=== PATIENT | female | born 1985 | race Caucasian/White ===

== ENCOUNTER 2021-02-27 17:03 | Emergency (ER) | payer OTHER, SELFPAY ==
[2021-02-27 17:06] VITALS: PULSE 100; RESP 18; TEMP 36.7; O2SAT 98; BMI 29.2
--- NOTE | 2021-02-27 17:42 | ED.ANIMALBIT ---
HPI - Animal Bite General Chief Complaint: Animal Bite Stated Complaint: Dog Bite on Face Time Seen by Provider: 02/27/21 17:31 History of Present Illness HPI narrative: Patient complains of dog bite to the right side of the face from her friend's dog that she was playing with, she is not sure if the dog is up-to-date on tetanus shot but it is a known dog that is easy to follow, she needs a tetanus shot, no other injury Related Data Previous Rx's Medication Instructions Recorded amoxicillin-pot clavulanate 1 tab PO Q12H 4 Days #8 tab 02/27/21 [Augmentin] Allergies Allergy/AdvReac Type Severity Reaction Status Date / Time No Known Allergies Allergy Verified 02/27/21 17:36 Review of Systems Review of Systems: Positive for dog bites to the face, negatives are no fever no chills no numbness no weakness no tingling no difficulty breathing or swallowing no rash no dizziness Yes all other systems are reviewed and are negative PMFSH Past Medical History Source: nursing notes reviewed Medical History (Updated 02/28/21 @ 00:00 by Jaquan Russell) Patient denies significant medical history Social History Social History Advance Directives: No Advance Directives Information Provided: Yes Physical Exam Vital Signs: Vital Signs: Last Vital Signs Temp 98.0 F 02/27/21 17:06 Pulse 100 02/27/21 17:06 Resp 18 02/27/21 17:06 Pulse Ox 98 02/27/21 17:06 Body Mass Index 29.2 General appearance no acute distress, cooperative and O x3 The face head several small 0.5 cm dog bite wounds, no significant gaping laceration, no bony tenderness The neck was supple The pharynx was clear, no injury to the lips Respiratory no distress Extremities full range of motion x4 Neuro no focal deficit Course Course Course Narrative: Patient was given prophylactic antibiotics, tetanus shot, the bite brock on the face were irrigated and cleansed with normal saline but none of them needed repair now Patient is advised if the dog get sick or dyes within 10 days if she cannot confirm that the dog was vaccinated that she should return for discussion of rabies vaccination Discharge Plan Discharge Clinical Impression: Dog bite Patient Disposition: Home, Self-Care Instructions: Animal Bite (ED), Rabies (ED) Additional Instructions: The small bite on her face was not repaired as there is slight risk of infection with suturing We gave you tetanus shot We started preventive antibiotic Augmentin to prevent infection If dog is not up to date on rabies shots it needs to be observed to see if the dog get sick or dies with in the next 10 days If the dog get sicker dyes within 10 days and is not immunized for rabies you should return to the ER for rabies immunization Return to the ER any time for any signs of infection such as redness swelling discharge from wound, any sign of infection or any worse condition or concerns Prescriptions: New amoxicillin-pot clavulanate [Augmentin] 875-125 mg tablet 1 tab PO Q12H 4 Days Qty: 8 RF: 0 Interventions: ED Discharge Assessment Last Done: 02/27/21 18:20 Discharge Date/Time: 02/27/21 18:20
[2021-02-27] MEDS: Diphth,Pertus(ACell),Tet Adult 0.5 ML SYRINGE IM (18:10)
[2021-02-27] MEDS: Amoxicillin/Potassium Clav 875 MG TABLET PO (18:10)
== END 2021-02-27 18:20 | disposition home or self-care (01) ==
PROVIDERS: Emergency Provider Emergency Medicine; PCP Internal Medicine
DX: S00.87XA Other superficial bite of other part of head, initial encounter (principal); R51.9 Headache, unspecified; W54.0XXA Bitten by dog, initial encounter; Y93.9 Activity, unspecified; Y92.009 Unspecified place in unspecified non-institutional (private) residence as the place of occurrence of the external cause; Y99.9 Unspecified external cause status; Z79.899 Other long term (current) drug therapy
CPT/HCPCS: 90471; 90715; 99283; 99284

== ENCOUNTER 2021-03-19 12:44 | Emergency (ER) | payer OTHER, SELFPAY | END 2021-03-19 13:02 | disposition left against medical advice (07) | PROVIDERS: Emergency Provider Emergency Medicine; PCP Internal Medicine | DX: R55 Syncope and collapse (principal) ==

== ENCOUNTER 2021-04-06 13:22 | Outpatient (REF) | payer OTHER, SELFPAY ==
[2021-04-06 13:59] LABS: COVID-19 Test Negative (Negative); IDNOW Serial# 55D5AD1C
== END 2021-04-06 13:23 | disposition home or self-care (01) ==
LOC: HO.LAB 13:22
PROVIDERS: Visit Provider Internal Medicine
DX: Z20.822 Contact with and (suspected) exposure to COVID-19 (principal)
CPT/HCPCS: 36415; 87635; C9803

== ENCOUNTER 2021-04-06 14:56 | Emergency (ER) | payer OTHER, SELFPAY ==
--- NOTE | ~2021-04-06 | XR_ITS ---
EXAMINATION: XR CHEST CLINICAL INFORMATION: Cough. COMPARISON: None TECHNIQUE: Frontal view of the chest was obtained. FINDINGS: No significant abnormality is noted involving the heart, lungs, mediastinum, bony thorax or soft tissues. XR/XR chest 1V IMPRESSION: Unremarkable chest examination.
[2021-04-06 15:47] VITALS: BP 154/79; PULSE 69; RESP 18; TEMP 36.6; O2SAT 99; BMI 30.2
[2021-04-06 16:55] LABS: Influenza A PCR NEGATIVE (Negative); Influenza B PCR NEGATIVE (Negative); Resp Syncy Virus RNA Qual PCR NEGATIVE (Negative); SARS COV2 PCR INHOUSE NEGATIVE (Negative)
--- NOTE | 2021-04-06 17:25 | ED.SOB ---
HPI - SOB/Dyspnea General Source: patient, RN notes reviewed and old records reviewed Mode of arrival: ambulatory Limitations: no limitations History of Present Illness HPI Narrative: 36-year-old female here today for complaining of cough, and some SOB. Patient reports that she has been coughing quite a bit and has been making her gag and feeling nauseous. Denies any CP, SOB with or without exertion. Reports of subjective fevers. Negative for vomiting or diarrhea. Negative for abdominal discomfort. Denies any exposure to COVID. Related Data Previous Rx's Medication Instructions Recorded amoxicillin-pot clavulanate 1 tab PO Q12H 4 Days #8 tab 02/27/21 [Augmentin] albuterol sulfate 2 puff INHALATION Q6H PRN #8.5 g 04/06/21 azithromycin 250 mg PO DAILY 5 Days #5 tab 04/06/21 benzonatate [Tessalon Perles] 100 mg PO BID PRN #20 cap 04/06/21 Allergies Allergy/AdvReac Type Severity Reaction Status Date / Time No Known Allergies Allergy Verified 02/27/21 17:36 Review of Systems Constitutional: Constitutional: Denies weight gain and Denies weight loss Cardiovascular: Cardiovascular: Reports no additional cardiovascular complaints Respiratory: Respiratory: Reports no additional respiratory complaints, Reports chest congestion, Reports cough and Reports dyspnea (When coughing) Gastrointestinal: Gastrointestinal: Denies abdominal pain, Denies belching, Denies melena, Denies bloating, Denies change in bowel habits, Denies dyspepsia, Denies heartburn, Denies nausea and Denies vomiting Neurologic: Reports system reviewed and no additional complaints, except as documented Psychiatric: Psychiatric: Reports no additional psychiatric complaints PMFSH Past Medical History Medical History (Updated 04/07/21 @ 00:01 by Background Daemon) Patient denies significant medical history Social History Social History Advance Directives: No Advance Directives Information Provided: Yes Patient : No Physical Exam Vital Signs: Vital Signs: Last Vital Signs Temp 97.9 F 04/06/21 15:47 Pulse 86 04/06/21 17:59 Resp 18 04/06/21 15:47 BP 154/79 H 04/06/21 15:47 Pulse Ox 99 04/06/21 15:47 Body Mass Index 30.2 Const: General: healthy appearing, no acute distress and well developed Nutritional Appearance: well nourished Orientation/consciousness: patient oriented x3 Neck: Neck: Yes normal visual inspection, Yes full ROM and Yes trachea midline Thyroid: Thyroid normal Chest: Chest palpation & inspection: normal inspection of the chest Resp: Effort & Inspection: Actively coughing and not labored Auscultation: wheezes (Right upper inspiratory and expiratory.) Cardio: Rate: regular rate Rhythm: regular rhythm GI: Inspection: Yes normal to inspection and No distended Palpation (GI): No hepatosplenomegaly present Auscultation: normal bowel sounds Skin: General skin exam: elasticity normal, turgor normal and dry skin Neuro: General: patient oriented x3 Course Course Course Narrative: 36-year-old female here today for complaining of cough, SOB fevers in the last few days. Denies any exposure to COVID. Lung sounds expiratory wheeze in the right upper lobe. Negative for history of asthma. Denies any GI symptoms. Will give her up draft, Tessalon Perles and wait for improvement. Reevaluation(s) Reevaluation #1: Patient reports to be feeling better. Cough suppressed by Tessalon Perles. Chest X-ray negative for any acute processes. Lung sounds clear. Will send patient home with scripts for cough suppressant, albuterol rescue inhaler. MDM - SOB/Dyspnea Medical Records Attestation: I reviewed the patient's medical records. Lab Data Labs: Lab Results 04/06/21 Range/Units 16:08 Coronavirus (PCR) NEGATIVE (Negative) Influenza Type A (PCR) NEGATIVE (Negative) Influenza Type B (PCR) NEGATIVE (Negative) RSV RNA Qual (PCR) NEGATIVE (Negative) Imaging Data Chest x-ray: Radiologist's impression: FINDINGS: No significant abnormality is noted involving the heart, lungs, mediastinum, bony thorax or soft tissues. XR/XR chest 1V IMPRESSION: Unremarkable chest examination. Discharge Plan Discharge Clinical Impression: Viral respiratory illness, Cough, Wheezing Patient Disposition: Home, Self-Care Instructions: Viral Syndrome (ED), Wheezing (ED) Additional Instructions: You were seen here today for upper respiratory symptoms. Your test were negative for COVID and flu. You were given an albuterol treatment that improved your breathing. You are giving cough suppressant to help with your cough. You will be sent home with script for albuterol rescue inhaler as well as cough suppressant. Your chest x-ray was also negative. Please follow-up with your primary care physician in 2-3 days. He may return to the emergency department if your symptoms will get worse or if he will experience any other concerning symptoms. Prescriptions: New benzonatate [Tessalon Perles] 100 mg capsule 100 mg PO BID PRN (Reason: cough) Qty: 20 RF: 0 albuterol sulfate 90 mcg/actuation HFA aerosol inhaler 2 puff inhalation Q6H PRN (Reason: shortness of breath or wheezing) Qty: 8.5 RF: 0 azithromycin 250 mg tablet 250 mg PO DAILY 5 Days Qty: 5 RF: 0 No Action amoxicillin-pot clavulanate [Augmentin] 875-125 mg tablet 1 tab PO Q12H 4 Days Qty: 8 RF: 0 Stand Alone Forms: Work/School Release Interventions: ED Discharge Assessment Last Done: 04/06/21 19:15 Discharge Date/Time: 04/06/21 19:17
[2021-04-06 17:59] VITALS: PULSE 86; O2SAT 98
[2021-04-06] MEDS: Albuterol Sulfate (0.083%) 2.5 MG/3 ML VIAL.NEB INHALE (17:59)
[2021-04-06] MEDS: Benzonatate 100 MG CAPSULE PO (18:12)
== END 2021-04-06 19:17 | disposition home or self-care (01) ==
PROVIDERS: Nurse Practitioner Family; Emergency Provider Internal Medicine; PCP Internal Medicine
DX: B34.9 Viral infection, unspecified (principal); R05 Cough; R50.9 Fever, unspecified; Z20.822 Contact with and (suspected) exposure to COVID-19
CPT/HCPCS: 0241U; 36415; 71045; 94640; 99283

== ENCOUNTER 2021-06-22 00:26 | Emergency (ER) | payer OTHER, SELFPAY ==
[2021-06-22 00:37] VITALS: BP 131/95; PULSE 94; RESP 14; TEMP 36.6; O2SAT 100; BMI 28.3
== END 2021-06-22 01:35 | disposition left against medical advice (07) ==
PROVIDERS: Emergency Provider Emergency Medicine
DX: S61.411A Laceration without foreign body of right hand, initial encounter (principal); W25.XXXA Contact with sharp glass, initial encounter; Y93.9 Activity, unspecified; Y92.039 Unspecified place in apartment as the place of occurrence of the external cause; Y99.9 Unspecified external cause status
CPT/HCPCS: 99281; 99282

== ENCOUNTER 2021-09-14 14:50 | Emergency (ER) | payer OTHER, SELFPAY ==
[2021-09-14 15:57] VITALS: BP 122/61; PULSE 94; RESP 20; TEMP 36.8; O2SAT 98; BMI 29.2
[2021-09-14 16:04] LABS: COVID-19 Test Negative (Negative)
--- NOTE | 2021-09-14 17:11 | ED_ITS ---
HPI - URI/Sore Throat General Chief Complaint: Upper Respiratory Symptoms Stated Complaint: FLU [place]MP[place]S Time Seen by Provider: 09/14/21 16:43 Source: patient Mode of arrival: ambulatory Limitations: no limitations History of Present Illness HPI Narrative: 36-year-old female presenting to the ED with multiple complaints which include chills, fatigue, body aches, generalized weakness, generalized rash, sore throat, loss of taste and smell, productive cough with white-colored sputum for the past 2 days worse today. Reports she is not vaccinated to COVID. Denies any recent travel or sick contacts. She also reports her bilateral breasts have been hurting over the past few days as well and she has not gotten her menstrual period and she is concerned. Denies any measured fevers, dizziness, headaches, neck pain/stiffness, chest pain or shortness of breath, dyspnea on exertion, orthopnea, nausea/vomiting/diarrhea or constipation, abdominal pain, back pain, dysuria, hematuria, abnormal vaginal discharge, va ginal bleeding or any other symptoms complaints or concerns at this time. MD elicited complaint: cough, sore throat, rhinorrhea and nasal congestion Onset (ago): day(s) (Two days worse today) Consistency: constant and progressively worsening Severity: moderate Description of mucous: clear, watery and other (White) Able to tolerate fluids by mouth: Yes Exacerbating factors: swallowing Relieving factors: nothing Associated symptoms: chills, myalgias, rhinorrhea, nasal congestion, sore throat, cough and rash Treatments prior to arrival: none Related Data Previous Rx's Medication Instructions Recorded amoxicillin 875 mg-potassium 1 tab PO Q12H 4 Days #8 tab 02/27/21 clavulanate 125 mg tablet (Augmentin) albuterol sulfate 90 mcg/actuation 2 puff INHALATION Q6H PRN #8.5 g 04/06/21 aerosol inhaler azithromycin 250 mg tablet 250 mg PO DAILY 5 Days #5 tab 04/06/21 benzonatate 100 mg capsule 100 mg PO BID PRN #20 cap 04/06/21 (Tessalon Perles) cephalexin 500 mg capsule 500 mg PO Q6H 7 Days #28 cap 09/14/21 Allergies Allergy/AdvReac Type Severity Reaction Status Date / Time No Known Allergies Allergy Verified 09/14/21 15:57 Review of Systems Review of Systems: Constitutional : No Weight loss, No Fever, + Chills, No Night Sweats, + Fatigue, + Malaise ENT/Mouth : No Hearing loss, No Ear Pain, + Nasal Congestion, No Sinus Pain, No Hoarseness, + sore throat, + Rhinorrhea, No Swallowing Difficulty Eyes: No Eye Pain, No Swelling, No Redness, No Foreign Body, No Discharge, No Vision Changes Cardiovascular : No Chest Pain, No SOB, No Dyspnea on Exertion, No Orthopnea, No Edema, No Palpitations Respiratory : + Cough, + Sputum, No Wheezing, No Smoke Exposure, No Dyspnea Gastrointestinal : No Nausea, No Vomiting, No Diarrhea, No Constipation, No abdominal Pain, No Hematochezia, No Melena Genitourinary : no irregular bleeding, No Dysuria, No Urinary Frequency, No Hematuria, No Urinary Incontinence, No Urgency, No Flank Pain, No Urinary Flow Changes, No Hesitancy Musculoskeletal : No joint pain, + Myalgias, No Joint Swelling Skin : No Skin Lesions, No rash Neuro : No Weakness, No Numbness, No Paresthesias, No Loss of Consciousness, No Dizziness, No Headache Psych : No Anxiety/Panic, No Depression, No SI/HI/AH/VH, No Social Issues, Heme/Lymph: No Bruising, No Bleeding,No Lymphadenopathy Endocrine : No Polyuria, No Polydipsia, No Temperature Intolerance Yes all other systems are reviewed and are negative [facility] Past Medical History Attestation statement: The following information was validated with the patient. Medical History Patient denies significant medical history Social History Social History Advance Directives: No Advance Directives Information Provided: No Patient : No Physical Exam Vital Signs: Vital Signs: Last Vital Signs Temp 98.3 F 09/14/21 15:57 Pulse 94 09/14/21 15:57 Resp 20 09/14/21 15:57 BP 122/61 09/14/21 15:57 Pulse Ox 98 09/14/21 15:57 Body Mass Index 29.2 vital signs have been reviewed as normal and appeared to be correct. Blood pressure normal. Heart rate normal. Respiration rate normal. Temperature normal. Oxygen saturation normal. Appearance: Alert. Oriented X3. No acute distress. Head: Normal external exam. Normocephalic. Atraumatic. Eyes: PERRLA. EOMI. Conjunctiva and sclera normal. Eyelids normal. ENT: EAC normal. TM's Normal. Pharynx normal. Uvula midline. Moist mucous membranes. No trismus noted. No drooling noted. No muffled voice noted. Neck: Normal inspection. Neck supple. FROM. No adenopathy. Thyroid Normal. No meningeal signs. No neck mass noted. CVS: Normal heart rate and rhythm. Heart sound normal. Pulses normal throughout. No murmurs/rales/gallops. Respiratory: No respiratory distress. Painless inspiration. Breath sounds normal. No wheezes/rales/rhonchi noted. Chest nontender. No accessory muscle usage noted or decreased air movement noted. Breast Exam: Patient reports tenderness to bilateral breast although no lump/lesions/rashes/induration noted to bilateral breasts. No lymphadenopathy is noted. No nipple discharge is noted. Breasts have normal contour/shape. Abdomen: Soft and nontender. Bowel sounds normal in all 4 quadrants. No distention noted. No organomegaly noted. No visible injury noted. Back:Full range of motion noted. No rashes/lesion/induration/fluctuance or signs of infection noted. Skin: Skin warm and dry. Normal skin color. Normal skin turgor. No rashes/lesions/lacerations noted. Extremities: Extremities exhibit normal range of motion. Extremities nontender. Neuro: Oriented X 3. No motor deficit. No sensory deficit. Reflexes normal. Normal steady gait. No focal neuro deficits noted. Vascular: + radial pulses/+ 2 distal pedal pulses/+2 dorsalis pedis b/l. Normal cap refill. No cyanosis noted to upper extremity nails and lower extremity toes nails. Course Course Course Narrative: 17pm - 36-year-old female presenting to the ED with multiple complaints which include chills, fatigue, body aches, generalized weakness, generalized rash, sore throat, loss of taste and smell, productive cough with white-colored sputum for the past 2 days worse today. Reports she is not vaccinated to COVID. Denies any recent travel or sick contacts. She also reports her bilateral breasts have been hurting over the past few days as well and she has not gotten her menstrual period and she is concerned. Denies any measured fevers, dizziness, headaches, neck pain/stiffness, chest pain or shortness of breath, dyspnea on exertion, orthopnea, nausea/vomiting/diarrhea or constipation, abdominal pain, back pain, dysuria, hematuria, abnormal vaginal discharge, vaginal bleeding or any other symptoms complaints or concerns at this time. Plan: CXR, UA, UHCG, SARS/RSV/FLU swab and strep then re-evaluate Reevaluation(s) Reevaluation #1: - patient's UA reveals +1 leukocytes and 10-14 white blood cells therefore she has a UTI and should be treated. - patient also positive for - therefore I discussed this with the patient and we canceled the chest x-ray due to I do not believe she has pneumonia and I explained to her that she is currently she reports that she took out her IUD a few months ago she believes in April and she has not had a period since then she has been sexually active. She denies any abdominal pain, abnormal vaginal discharge or vaginal bleeding therefore at this time will obtain labs including a serum quant and re- evaluate sign-out to LISA Suresh. Time: 18:53 [facility] - URI/Sore Throat Medical Records Attestation: I reviewed the patient's medical records. Lab Data Attestation: I reviewed the patient's lab results. Labs: Lab Results 09/14/21 09/14/21 09/14/21 Range/Units 15:35 17:23 17:23 Urine Color Urine Appearance Urine pH (5.0-8.0) Ur Specific [place] (1.005-1.025) Urine Protein (NEG-TRACE) MG/DL Urine Glucose (UA) (NEG) MG/DL Urine Ketones (NEG) MG/DL Urine Blood (NEG) Urine Nitrite (NEG) Ur Leukocyte Esterase (NEG) Urine RBC (0) /HPF Urine WBC (0-4) /HPF Ur Squamous Epith Cells /LPF Urine Bacteria /LPF Urine Test (NEGATIVE) Coronavirus (PCR) NEGATIVE (Negative) COVID-19 ([facility]) Negative (Negative) COVID-19 Clin Com See Note Influenza Type A (PCR) NEGATIVE (Negative) Influenza Type B (PCR) NEGATIVE (Negative) RSV RNA Qual (PCR) NEGATIVE (Negative) S. pyogenes GrpA DAVID Negative (Negative) 09/14/21 09/14/21 Range/Units 17:23 17:23 Urine Color YELLOW Urine Appearance HAZY Urine pH 7.5 (5.0-8.0) Ur Specific [place] 1.010 (1.005-1.025) Urine Protein NEG (NEG-TRACE) MG/DL Urine Glucose (UA) NEG (NEG) MG/DL Urine Ketones NEG (NEG) MG/DL Urine Blood NEG (NEG) Urine Nitrite NEG (NEG) Ur Leukocyte Esterase 1+ H (NEG) Urine RBC 0-2 (0) /HPF Urine WBC 10-14 H (0-4) /HPF Ur Squamous Epith Cells 2+ /LPF Urine Bacteria TRACE /LPF Urine Test POSITIVE H (NEGATIVE) Coronavirus (PCR) (Negative) COVID-19 ([facility]) (Negative) COVID-19 Clin Com Influenza Type A (PCR) (Negative) Influenza Type B (PCR) (Negative) RSV RNA Qual (PCR) (Negative) S. pyogenes GrpA DAVID (Negative) Imaging Data Chest x-ray: Attestation: I personally reviewed and interpreted this imaging study as follows: Discharge Plan Discharge Clinical Impression: UTI (urinary tract infection), Instructions: (ED), Urinary Tract Infection in (ED) Prescriptions: New cephalexin 500 mg capsule 500 mg PO Q6H 7 Days Qty: 28 RF: 0 No Action amoxicillin-pot clavulanate [Augmentin] 875-125 mg tablet 1 tab PO Q12H 4 Days Qty: 8 RF: 0 benzonatate [Tessalon Perles] 100 mg capsule 100 mg PO BID PRN (Reason: cough) Qty: 20 RF: 0 albuterol sulfate 90 mcg/actuation HFA aerosol inhaler 2 puff inhalation Q6H PRN (Reason: shortness of breath or wheezing) Qty: 8.5 RF: 0 azithromycin 250 mg tablet 250 mg PO DAILY 5 Days Qty: 5 RF: 0 Referrals: Isabel Chilel DO [Primary Care Provider] - 2 days Chad Tamayo MD [Physician] - 2 days Print Language: Nigerian
[2021-09-14 17:52] LABS: Appearance Urine HAZY; Color Urine YELLOW; Glucose Urine UA NEG (NEG); Leukocyte Esterase Urine 1+ (NEG); Nitrite Urine NEG (NEG); PH 7.5 (5.0-8.0); UACC Culture Trigger YES; Urine Blood NEG (NEG); Urine Ketones NEG (NEG); Urine Protein NEG (NEG-TRACE)
[2021-09-14 17:53] LABS: UPreg QC Valid YES; Urine Pregnancy POSITIVE (NEGATIVE)
[2021-09-14 18:00] LABS: IDNOW Serial# 08D9AD1C; Strep A Nucleic Acid Negative (Negative)
[2021-09-14 18:27] LABS: Bacteria Urine TRACE /LPF; RBC Urine 0-2 /HPF (0); Squamous Epithelial Cell Urine 2+ /LPF
[2021-09-14 18:37] LABS: Influenza A PCR NEGATIVE (Negative); Influenza B PCR NEGATIVE (Negative); Resp Syncy Virus RNA Qual PCR NEGATIVE (Negative); SARS COV2 PCR INHOUSE NEGATIVE (Negative)
[2021-09-14 18:59] LABS: MANUAL DIFF FLAG NO
[2021-09-14 19:01] LABS: Basophils Percent Auto 0.2 % (0-2); Eosinophils Absolute Auto 0.1 X10*3/uL (0.0-0.4); Eosinophils Percent Auto 1.5 % (0-4); Hematocrit 34.2 % (37-47); Hemoglobin 12.2 g/dl (12.0-16.0); Imm Gran Abs Auto 0.02 X10*3/uL (0.00-0.03); Imm Gran Pct Auto 0.3 % (0.0-0.4); Lymphocytes Absolute Auto 1.3 X10*3/uL (1.2-4.9); Mean Corpuscular HGB Conc 35.7 g/dl (31.0-35.0); Mean Corpuscular Hemoglobin 34.1 pg (27.0-33.0); Mean Corpuscular Volume 95.5 fL (80-98); Mean Platelet Volume 10.3 fL (9.4-12.3); Monocytes Absolute Auto 0.5 X10*3/uL (0.1-1.2); Monocytes Percent Auto 7.6 % (2-11); Neutrophils Absolute Auto 4.6 X10*3/uL (2.0-8.3); Neutrophils Percent Auto 70.4 % (45-73); Platelet Count 185 X10*3/uL (160-400); Red Blood Count 3.58 X10*6/uL (4.20-5.50); Red Cell Distribution Width 12.1 % (11.0-16.0); White Blood Count 6.5 X10*3/uL (4.8-10.8)
[2021-09-14 19:19] LABS: Alanine Aminotransferase 10 U/L (0-31); Albumin Level 4.2 g/dL (3.5-5.0); Alkaline Phosphatase 40 U/L (39-117); Anion Gap 13 (12-20); Aspartate Amino Transferase 14 U/L (5-31); Bilirubin Total 0.3 mg/dL (0.0-1.0); Blood Urea Nitrogen 5 mg/dL (9-16); Calcium 8.9 mg/dL (8.4-10.2); Carbon Dioxide 22 mmol/L (22-29); Chloride 106 mmol/L (96-108); Creatinine Clr Calc Pharmacy 119.1; Estimated Glomerular Filt Rate > 60; Glucose Random 91 mg/dL (60-115); Potassium 3.8 mmol/L (3.3-5.1); Sodium 137 mmol/L (135-145); Total Protein 6.6 g/dL (6.5-8.0)
[2021-09-14 20:22] VITALS: BP 117/72; PULSE 82; RESP 18; TEMP 36.9; O2SAT 100
== END 2021-09-14 20:35 | disposition home or self-care (01) ==
PROVIDERS: Physician Assistant Medical; Emergency Provider Emergency Medicine; PCP Internal Medicine
DX: O23.40 Unspecified infection of urinary tract in pregnancy, unspecified trimester (principal); N39.0 Urinary tract infection, site not specified; Z3A.00 Weeks of gestation of pregnancy not specified; Z20.822 Contact with and (suspected) exposure to COVID-19
CPT/HCPCS: 0241U; 36415; 80053; 81001; 81025; 83735; 84702; 85025; 87086; 87635; 87651; 99283; 99284

== ENCOUNTER 2021-11-07 07:42 | Emergency (ER) | payer OTHER, SELFPAY ==
--- NOTE | ~2021-11-07 | US_ITS ---
EXAMINATION: US OBSTETRICAL ULTRASOUND CLINICAL INFORMATION: , drop in bhCG. COMPARISON: None LMP: Unknown. Gestational age by maternal dates is unknown. Estimated date of delivery by maternal dates is unknown. TECHNIQUE: Real time transabdominal imaging with color and M-mode Doppler. POSITION: Breech PLACENTA: Fundal AMNIOTIC FLUID: subjectively normal. LISA not provided. MEASUREMENTS: biometric measurements are as follows: Biparietal Diameter: 4.1 cm (18 weeks 4 days) Occipital Frontal Diameter: 4.8 cm (17 weeks 5 days) Head Circumference: 14.8 cm (18 weeks 0 days) Abdominal Circumference: 12.0 cm (17 weeks 5 days) Femur Length: 2.2 cm (16 weeks 5 days) Measurements are consistent with ultrasound gestational age of approximately 17 weeks 6 days +/- 10 days. The estimated date of delivery is 04/11/2022 +/- 10 days. ESTIMATED WEIGHT: The EFW is 193 grams +/- 28 grams (0 lbs 7 oz +/- 1 oz). ANATOMY: cardiac activity is approximately 156 bpm. Four-chamber heart noted during real-time imaging. There is no ventriculomegaly. No ascites or hydronephrosis. stomach and bladder unremarkable. US/US OB follow up IMPRESSION: 1. Single intrauterine gestation in breech position with fundal placenta. 2. Amniotic fluid volume subjectively normal. 3. cardiac activity 156 bpm. 4. Ultrasound gestational age 17 weeks 6 days +/- 10 days. 5. Estimated date of delivery +/- 10 days.
[2021-11-07 08:05] VITALS: BP 125/77; PULSE 90; RESP 18; TEMP 36.7; O2SAT 99; BMI 30.2
--- NOTE | 2021-11-07 08:20 | ED.GENADULT ---
HPI - General Adult General Chief complaint: General Medical Stated complaint: nausea, kidney/lung pain, abnormal mucus (preg) Time Seen by Provider: 11/07/21 08:10 Source: patient Mode of arrival: ambulatory Limitations: no limitations History of Present Illness HPI narrative: Patient comes emergency room complaining of coughing, nausea and vomiting for approximately 1 week. Patient also complaining of loss of smell and taste. Patient is currently a , A+ blood type, at unknown gestational age. Per previous records, patient was approximately 6-7 weeks on September 14 when she was last seen here in the emergency room. Patient has not had any care, patient is today approximately 14-15 weeks of gestational age. Patient denies vaginal bleeding/spotting, no fluid leakage Related Data Previous Rx's Medication Instructions Recorded amoxicillin 875 mg-potassium 1 tab PO Q12H 4 Days #8 tab 02/27/21 clavulanate 125 mg tablet (Augmentin) albuterol sulfate 90 mcg/actuation 2 puff INHALATION Q6H PRN #8.5 g 04/06/21 aerosol inhaler azithromycin 250 mg tablet 250 mg PO DAILY 5 Days #5 tab 04/06/21 benzonatate 100 mg capsule 100 mg PO BID PRN #20 cap 04/06/21 (Tessalon Perles) cephalexin 500 mg capsule 500 mg PO Q6H 7 Days #28 cap 09/14/21 prochlorperazine maleate 5 mg 5 mg PO BID PRN #14 tab 11/07/21 tablet (Compazine) Allergies Allergy/AdvReac Type Severity Reaction Status Date / Time No Known Allergies Allergy Verified 09/14/21 15:57 Review of Systems Review of Systems: Constitutional : No Weight loss, No Fever, No Chills, No Night Sweats, No Fatigue, No Malaise ENT/Mouth : No Hearing loss, No Ear Pain, No Nasal Congestion, No Sinus Pain, No Hoarseness, No sore throat, No Rhinorrhea, No Swallowing Difficulty Eyes: No Eye Pain, No Swelling, No Redness, No Foreign Body, No Discharge, No Vision Changes Cardiovascular : No Chest Pain, No SOB, No Dyspnea on Exertion, No Orthopnea, No Edema, No Palpitations Respiratory : Complaining of Cough, No Sputum, No Wheezing, No Smoke Exposure, No Dyspnea Gastrointestinal : Complaining of nausea and Vomiting, No Diarrhea, No Constipation, No abdominal Pain, No Hematochezia, No Melena Genitourinary : no irregular bleeding, No Dysuria, No Urinary Frequency, No Hematuria, No Urinary Incontinence, No Urgency, complaining of bilateral back pain, No Urinary Flow Changes, No Hesitancy Musculoskeletal : No joint pain, No Myalgias, No Joint Swelling Skin : No Skin Lesions, No rash Neuro : No Weakness, No Numbness, No Paresthesias, No Loss of Consciousness, No Dizziness, No Headache Psych : No Anxiety/Panic, No Depression, No SI/HI/AH/VH, No Social Issues, Heme/Lymph: No Bruising, No Bleeding,No Lymphadenopathy Endocrine : No Polyuria, No Polydipsia, No Temperature Intolerance PMFSH Past Medical History Medical History Patient denies significant medical history Social History Social History Advance Directives: No Advance Directives Information Provided: No Patient : Yes Physical Exam Vital Signs: Vital Signs: Last Vital Signs Temp 98.1 F 11/07/21 08:05 Pulse 90 11/07/21 08:05 Resp 18 11/07/21 08:05 BP 125/77 11/07/21 08:05 Pulse Ox 99 11/07/21 08:05 BMI result Body Mass Index 30.2 Const: Other: Appearance: Alert. Oriented X3. No acute distress. Looks uncomfortable/nauseous, has strong odor of marijuana Eyes: Pupils equal, round and reactive to light. ENT: Pharynx normal. Neck: Normal inspection. Neck supple. No lymph nodes noted. No crepitus CVS: Normal heart rate and rhythm. Pulses normal. Normal S1 and S2 Respiratory: No respiratory distress. Breath sounds normal. No Wheezing. No rales Abdomen: Soft and nontender. No rigidity. No distention. Skin: Skin warm and dry. Normal skin color. Normal skin turgor. Extremities: No lower extremity edema. No Lacerations. No Rash Neuro: Oriented X 3. No motor deficit. No sensory deficit. Moving all extermities. No slurred speech. Course Course Course Narrative: I discussed the drop-in HCG with Dr. Tamayo. That is too worrisome but recommends ultrasound Discussed with the patient that marijuana use during may growth issues with the fetus. Patient states she is aware. Patient is feeling better after IV hydration I discussed with the patient the benefits of COVID-19 antibody infusion clinic. Patient is agreeable to go. Medical Decision Making Lab Data Result diagrams: 11/07/21 09:24 11/07/21 09:24 Labs: Lab Results 11/07/21 11/07/21 11/07/21 Range/Units 08:07 09:24 09:24 WBC 4.0 L (4.8-10.8) X10*3/uL RBC 3.53 L (4.20-5.50) X10*6/uL Hgb 11.4 L (12.0-16.0) g/dl Hct 33.2 L (37.0-47.0) % MCV 94.1 (80.0-98.0) fL MCH 32.3 (27.0-33.0) pg MCHC 34.3 (31.0-35.0) g/dl RDW 12.4 (11.0-16.0) % Plt Count 103 L (160-400) X10*3/uL MPV 11.4 (9.4-12.3) fL Immature Gran % (Auto) 0.5 H (0.0-0.4) % Neut % (Auto) 86.7 H (45-73) % Lymph % (Auto) 7.3 L (20-40) % [place] % (Auto) 5.5 (2-11) % Eos % (Auto) 0.0 (0-4) % Baso % (Auto) 0.0 (0-2) % Lymph # (Auto) 0.3 L (1.2-4.9) X10*3/uL [place] # (Auto) 0.2 (0.1-1.2) X10*3/uL Eos # (Auto) 0.0 (0.0-0.4) X10*3/uL Baso # (Auto) 0.0 (0.0-0.2) X10*3/uL Abs Immat Gran (auto) 0.02 (0.00-0.03) X10*3/uL Absolute Neuts (auto) 3.4 (2.0-8.3) x10*3/uL Absolute Nucleated RBC 0.000 (0.0-0.012) X10*3/uL Nucleated RBC % (auto) 0.0 (0.0-0.2) /100WBC Sodium 135 (135-145) mmol/L Potassium 3.3 (3.3-5.1) mmol/L Chloride 103 (96-108) mmol/L Carbon Dioxide 21 L (22-29) mmol/L Anion Gap 14 (12-20) BUN 3 L (9-16) mg/dL Creatinine 0.58 (0.5-1.4) mg/dL Estim Creat Clear Calc 121.0 Estimated GFR > 60 Random Glucose 96 (60-115) mg/dL Calcium 8.9 (8.4-10.2) mg/dL Total Bilirubin 0.3 (0.0-1.0) mg/dL Direct Bilirubin < 0.2 (0.0-0.5) mg/dL AST 21 D (5-31) U/L ALT 22 (0-31) U/L Alkaline Phosphatase 49 D (39-117) U/L Total Protein 6.7 (6.5-8.0) g/dL Albumin 4.1 (3.5-5.0) g/dL Beta HCG, Quant mIU/mL Urine Opiates Screen (Not Detect) Urine Fentanyl Screen (Not Detect) Ur Barbiturates Screen (Not Detect) Ur Phencyclidine Scrn (Not Detect) Ur Amphetamines Screen (Not Detect) U Benzodiazepines Scrn (Not Detect) Urine Cocaine Screen (Not Detect) U Marijuana (THC) Screen (Not Detect) COVID-19 ([facility]) Positive A (Negative) COVID-19 Clin Com See Note 11/07/21 11/07/21 Range/Units 09:24 09:24 WBC (4.8-10.8) X10*3/uL RBC (4.20-5.50) X10*6/uL Hgb (12.0-16.0) g/dl Hct (37.0-47.0) % MCV (80.0-98.0) fL MCH (27.0-33.0) pg MCHC (31.0-35.0) g/dl RDW (11.0-16.0) % Plt Count (160-400) X10*3/uL MPV (9.4-12.3) fL Immature Gran % (Auto) (0.0-0.4) % Neut % (Auto) (45-73) % Lymph % (Auto) (20-40) % [place] % (Auto) (2-11) % Eos % (Auto) (0-4) % Baso % (Auto) (0-2) % Lymph # (Auto) (1.2-4.9) X10*3/uL [place] # (Auto) (0.1-1.2) X10*3/uL Eos # (Auto) (0.0-0.4) X10*3/uL Baso # (Auto) (0.0-0.2) X10*3/uL Abs Immat Gran (auto) (0.00-0.03) X10*3/uL Absolute Neuts (auto) (2.0-8.3) x10*3/uL Absolute Nucleated RBC (0.0-0.012) X10*3/uL Nucleated RBC % (auto) (0.0-0.2) /100WBC Sodium (135-145) mmol/L Potassium (3.3-5.1) mmol/L Chloride (96-108) mmol/L Carbon Dioxide (22-29) mmol/L Anion Gap (12-20) BUN (9-16) mg/dL Creatinine (0.5-1.4) mg/dL Estim Creat Clear Calc Estimated GFR Random Glucose (60-115) mg/dL Calcium (8.4-10.2) mg/dL Total Bilirubin (0.0-1.0) mg/dL Direct Bilirubin (0.0-0.5) mg/dL AST (5-31) U/L ALT (0-31) U/L Alkaline Phosphatase (39-117) U/L Total Protein (6.5-8.0) g/dL Albumin (3.5-5.0) g/dL Beta HCG, Quant 29950 mIU/mL Urine Opiates Screen Not Detected (Not Detect) Urine Fentanyl Screen Not Detected (Not Detect) Ur Barbiturates Screen Not Detected (Not Detect) Ur Phencyclidine Scrn Not Detected (Not Detect) Ur Amphetamines Screen Not Detected (Not Detect) U Benzodiazepines Scrn Not Detected (Not Detect) Urine Cocaine Screen Not Detected (Not Detect) U Marijuana (THC) Screen POSITIVE H (Not Detect) COVID-19 ([facility]) (Negative) COVID-19 Clin Com Imaging Data US - abdomen: Radiologist's impression: COMPARISON:? None? LMP: Unknown. Gestational age by maternal dates is unknown. Estimated date of delivery by maternal dates is unknown. TECHNIQUE: Real time transabdominal imaging with color and M-mode Doppler. POSITION: Breech PLACENTA: Fundal AMNIOTIC FLUID: subjectively normal.? LISA not provided. MEASUREMENTS:? biometric measurements are as follows: Biparietal Diameter:? 4.1 cm? (18 weeks 4 days) Occipital Frontal Diameter:? 4.8 cm? (17 weeks 5 days) Head Circumference:? 14.8? cm? (18 weeks 0 days) Abdominal Circumference:? 12.0 cm? (17 weeks 5 days) Femur Length:? 2.2 cm (16 weeks 5 days) Measurements are consistent with ultrasound gestational age of approximately 17 weeks 6 days +/- 10 days. The estimated date of delivery is 04/11/2022? +/- 10 days. ESTIMATED WEIGHT: The EFW is 193 grams +/-? 28 grams (0? lbs? 7 oz +/- 1 oz). ANATOMY: cardiac activity is approximately 156 bpm. Four-chamber heart noted during real-time imaging. There is no ventriculomegaly. No ascites or hydronephrosis. stomach and bladder unremarkable. US/US OB follow up IMPRESSION:? 1. Single intrauterine gestation in breech position with fundal placenta. 2. Amniotic fluid volume subjectively normal. 3. cardiac activity 156 bpm. 4. Ultrasound gestational age 17 weeks 6 days +/- 10 days.? 5. Estimated date of delivery +/- 10 days.? ? Discharge Plan Discharge Clinical Impression: COVID-19, Nausea & vomiting, Marijuana use Patient Disposition: Home, Self-Care Instructions: Hyperemesis Gravidarum (ED), COVID-19 (Coronavirus Disease 2019) (ED) Additional Instructions: Please follow-up with your primary care physician tomorrow. Please call the phone number on the sheet that has been provided for you to go to the COVID-19 of the body clinic. If you have any worsening or new symptoms, please return to the emergency room or call 911 Prescriptions: New prochlorperazine maleate [Compazine] 5 mg tablet 5 mg PO BID PRN (Reason: nausea and vomiting) Qty: 14 RF: 0 No Action amoxicillin-pot clavulanate [Augmentin] 875-125 mg tablet 1 tab PO Q12H 4 Days Qty: 8 RF: 0 benzonatate [Tessalon Perles] 100 mg capsule 100 mg PO BID PRN (Reason: cough) Qty: 20 RF: 0 albuterol sulfate 90 mcg/actuation HFA aerosol inhaler 2 puff inhalation Q6H PRN (Reason: shortness of breath or wheezing) Qty: 8.5 RF: 0 azithromycin 250 mg tablet 250 mg PO DAILY 5 Days Qty: 5 RF: 0 cephalexin 500 mg capsule 500 mg PO Q6H 7 Days Qty: 28 RF: 0 Referrals: Chad Tamayo MD [Physician] - 2 days
[2021-11-07 08:21] LABS: COVID-19 Test Positive (Negative)
[2021-11-07] MEDS: Prochlorperazine Edisylate 10 MG/2 ML VIAL 5 MG IVPUSH (09:29)
[2021-11-07] MEDS: 0.9 % Sodium Chloride 1,000 ML 999 ML IVCONT (09:29)
[2021-11-07 09:38] LABS: MANUAL DIFF FLAG NO
[2021-11-07] MEDS: Acetaminophen 325 MG TABLET 650 MG PO (09:43)
[2021-11-07 09:50] LABS: Hematocrit 33.2 % (37.0-47.0); Hemoglobin 11.4 g/dl (12.0-16.0); Imm Gran Abs Auto 0.02 X10*3/uL (0.00-0.03); Imm Gran Pct Auto 0.5 % (0.0-0.4); Lymphocytes Absolute Auto 0.3 X10*3/uL (1.2-4.9); Lymphocytes Percent Auto 7.3 % (20-40); Mean Corpuscular HGB Conc 34.3 g/dl (31.0-35.0); Mean Corpuscular Hemoglobin 32.3 pg (27.0-33.0); Mean Corpuscular Volume 94.1 fL (80.0-98.0); Mean Platelet Volume 11.4 fL (9.4-12.3); Monocytes Absolute Auto 0.2 X10*3/uL (0.1-1.2); Monocytes Percent Auto 5.5 % (2-11); Neutrophils Absolute Auto 3.4 x10*3/uL (2.0-8.3); Neutrophils Percent Auto 86.7 % (45-73); Platelet Count 103 X10*3/uL (160-400); Red Blood Count 3.53 X10*6/uL (4.20-5.50); Red Cell Distribution Width 12.4 % (11.0-16.0)
[2021-11-07 09:58] LABS: Amphetamine Screen Urine Not Detected (Not Detect); Barbiturates, Urine Not Detected (Not Detect); Benzodiazepines Screen Urine Not Detected (Not Detect); Cannabinoid Screen Urine POSITIVE (Not Detect); Cocaine Screen Urine Not Detected (Not Detect); Fentanyl, urine Not Detected (Not Detect); Opiate Screen Urine Not Detected (Not Detect); Phencyclidine Screen Urine Not Detected (Not Detect)
[2021-11-07 10:12] LABS: Alanine Aminotransferase 22 U/L (0-31); Albumin Level 4.1 g/dL (3.5-5.0); Alkaline Phosphatase 49 U/L (39-117); Anion Gap 14 (12-20); Aspartate Amino Transferase 21 U/L (5-31); Bilirubin Direct < 0.2 mg/dL (0.0-0.5); Bilirubin Total 0.3 mg/dL (0.0-1.0); Blood Urea Nitrogen 3 mg/dL (9-16); Calcium 8.9 mg/dL (8.4-10.2); Carbon Dioxide 21 mmol/L (22-29); Chloride 103 mmol/L (96-108); Estimated Glomerular Filt Rate > 60; Glucose Random 96 mg/dL (60-115); Potassium 3.3 mmol/L (3.3-5.1); Sodium 135 mmol/L (135-145); Total Protein 6.7 g/dL (6.5-8.0)
[2021-11-07] MEDS: Calcium Carbonate 750 MG TAB.CHEW 1500 MG PO (12:04)
[2021-11-07] MEDS: Prochlorperazine Maleate 5 MG TABLET PO (14:53)
[2021-11-07 15:06] VITALS: BP 116/71; PULSE 80; RESP 18; O2SAT 99
--- NOTE | 2021-11-07 15:07 | PC.NURSE ---
alert, speech clear, skin wpd, has nausea, medicated w po compatize prior to d/c, nad
== END 2021-11-07 15:09 | disposition home or self-care (01) ==
PROVIDERS: Emergency Provider Emergency Medicine
DX: O98.512 Other viral diseases complicating pregnancy, second trimester (principal); U07.1 COVID-19; O26.892 Other specified pregnancy related conditions, second trimester; R11.2 Nausea with vomiting, unspecified; O99.322 Drug use complicating pregnancy, second trimester; F12.90 Cannabis use, unspecified, uncomplicated; Z3A.14 14 weeks gestation of pregnancy; Z20.822 Contact with and (suspected) exposure to COVID-19
CPT/HCPCS: 36415; 76816; 80048; 80076; 80307; 81003; 84702; 85025; 87635; 96361; 96374; 99284

== ENCOUNTER 2023-09-04 13:12 | Emergency (ER) | payer OTHER, SELFPAY ==
[2023-09-04 14:37] VITALS: BP 136/85; PULSE 84; RESP 17; TEMP 37.2; O2SAT 99; BMI 31.7
--- NOTE | 2023-09-04 14:37 | ED_ITS ---
HPI - General Adult General Chief complaint: Upper Respiratory Symptoms Stated complaint: sinus infection, fever Time Seen by Provider: 09/04/23 15:46 Source: patient, RN notes reviewed and old records reviewed Mode of arrival: ambulatory History of Present Illness HPI narrative: 38-year-old female with no significant past medical history presenting to the ED complaining of flu-like symptoms with fever T-max 103 degrees, chills, fatigue, sore throat, myalgias and left lower molar pain x 48 hours. Also reports dry cough and wheezing. Admits to known dental disease, has dentist appointment tomorrow morning. Admits to taking Tylenol [employer]. Denies recent travel, sick contacts, ear pain/drainage, difficulty or inability to swallow, abdominal pain. Onset (ago): day(s) Related Data Previous Rx's Medication Instructions Recorded amoxicillin 875 mg-potassium 1 tab PO Q12H 4 days #8 tabs 02/27/21 clavulanate 125 mg tablet (Augmentin) albuterol sulfate 90 mcg/actuation 2 puff inhalation Q6H PRN 04/06/21 aerosol inhaler shortness of breath or wheezing #8.5 grams azithromycin 250 mg tablet 250 mg PO DAILY 5 days #5 tabs 04/06/21 benzonatate 100 mg capsule 100 mg PO BID PRN cough #20 caps 04/06/21 (Tessalon Perles) cephalexin 500 mg capsule 500 mg PO Q6H uti 7 days #28 caps 09/14/21 prochlorperazine maleate 5 mg 5 mg PO BID PRN nausea and 11/07/21 tablet (Compazine) vomiting #14 tabs Allergies Allergy/AdvReac Type Severity Reaction Status Date / Time No Known Allergies Allergy Verified 11/10/21 08:57 Review of Systems Review of Systems: Constitutional: + Fever, + Chills, +fatigue ENT/Mouth: No Ear Pain, + Nasal Congestion, No Sinus Pain, No Hoarseness, + sore throat, + Rhinorrhea, No Swallowing Difficulty, +dental pain Cardiovascular: No Chest Pain, No SOB Respiratory: +Cough, No Sputum, No Wheezing Gastrointestinal: No Nausea, No Vomiting, No Abdominal pain Musculoskeletal: No joint pain, +Myalgias, No Joint Swelling Skin: No Skin Lesions, No rash Neuro: No Weakness Yes all other systems are reviewed and are negative Constitutional: Constitutional: Reports as per HPI [facility] Past Medical History Attestation statement: The following information was validated with the patient. Source: old records reviewed Medical History Patient denies significant medical history Social History Social History Advance Directives: No Advance Directives Information Provided: No Physical Exam ED Vital Signs: Vital Signs - 24 hr 09/04/23 14:37 09/04/23 16:48 Temperature 98.9 F Pulse Rate 84 66 Respiratory Rate 17 18 Blood Pressure 136/85 Pulse Oximetry 99 Oxygen Delivery Method Room Air BMI result Body Mass Index 31.7 Const General: cooperative, healthy appearing and no acute distress Orientation/consciousness: patient oriented x3 Limitations: no limitations HENMT Other: Poor dentition. Left lower 3rd molar w/fox/rotten, gingival tenderness noted. No fluctuance/induration or active drainage. No cellulitis. No facial swelling Head: Yes normal to inspection and Yes atraumatic Ears: hearing grossly normal bilaterally, external ears normal, TM's normal bilaterally and mastoids normal General nose exam: Normal external nose present Face and sinus: Yes normal facial exam Mouth: Normal oral and palatal mucosa present and no drooling Throat: Yes posterior oropharynx normal, Yes tonsils normal, Yes uvula midline, No peritonsillar mass, No uvula laterally displaced and No uvular edema Eyes General: appearance normal, both eyes and all related structures EOM: EOMs intact bilaterally Neck Neck: Yes normal visual inspection and Yes no meningeal signs Resp Effort & Inspection: normal respiratory effort and no respiratory distress Auscultation: wheezes expiratory wheezes and throughout Cardio Rate: regular rate Heart sounds: S1 normal heart sound present and S2 normal heart sound present GI Inspection: Yes normal to inspection Skin Rashes: no rashes Wounds: no wounds Neuro General: patient oriented x3, tone normal and no meningeal signs Cranial nerves: Yes CN's II-XII intact bilaterally Gait exam (Neuro): Normal gait present Extrem General: Yes normal to inspection and Yes no pedal edema Course Course Course Narrative: This is an RME: Additional HPI, ROS, PE not included below will be deferred to primary provider. This is a 29-[id number]-female presenting to the ER with complaints of nasal congestion, body aches, cough, runny nose, sore throat and fevers x 48 hours. Daughter is sick at home with similar symptoms. Reporting 103F two hours ago - took tylenol cold and flu. Also reporting left lower molar pain, reporting hx of problems with this tooth, reports that this worsened 48 hours. Plan: Viral swabs, strep test -1552--COVID/flu/RSV and rapid strep negative 1709--XR chest 2V IMPRESSION: No active cardiopulmonary disease. >> on re-evaluation after DuoNeb patient's lungs CTA. Given dose of IM Toradol. Plan to discharge home with p.o. prednisone and Augmentin Results discussed with patient including worrisome signs and symptoms and strict return precautions, and when to return to the emergency department. They verbalized understanding and feel safe for discharge at this time. Medications Administered Discontinued Medications Generic Name Dose Route Start Last Admin Trade Name Freq PRN Reason Stop Dose Admin Prednisone 40 mg 09/04/23 16:04 09/04/23 16:29 Prednisone 20 Mg Tablet PO 09/04/23 16:05 40 mg ONCE ONE Administration Medical Decision Making Medical Decision Making [facility] Narrative: 38-year-old female with no significant past medical history presenting to the ED complaining of flu-like symptoms with fever T-max 103 degrees, chills, fatigue, sore throat, myalgias and left lower molar pain x 48 hours. On exam vital signs stable, afebrile, NAD, nontoxic appearing, diffuse expiatory wheeze noted. Left lower 3rd molar with gingival tenderness, with dental caries. Talking in complete sentences, no respiratory distress or pedal edema. Concern for viral illness vs bronchitis or pneumonia. Concern for dental infection, no evidence of drainable abscess at this time. Low suspicion for osteomyelitis, otitis, ACS/PE Plan: COVID/flu/RSV, rapid strep, CXR, ED bronchodilator protocol, PO prednisone Please refer to course for remaining clinical decision making, interpretation of labs/imaging results, and discussions with consultants and/or family members. Differential Diagnosis Differential Diagnoses: The differential diagnosis associated with the presentation includes As above Lab Data [facility] Lab Attestation statement: I reviewed the patient's lab results. Labs: Lab Results 09/04/23 Range/Units 15:04 Influenza Type A (PCR) NEGATIVE (Negative) Influenza Type B (PCR) NEGATIVE (Negative) RSV RNA Qual (PCR) NEGATIVE (Negative) SARS-CoV-2 RNA (RT-PCR) NEGATIVE (Negative) S. pyogenes GrpA DAVID Negative (Negative) Independent Interpretation I performed an independent interpretation of an: Plain X-Ray External Record Review External record reviewed: Inpatient record, Office record, Outpatient record, Pr ior outpatient labs, Prior outpatient radiology, Primary care record and Outside ED record Tests considered The following testing was considered but not selected: As above Prescription Management I considered prescription management with: Antibiotic Discharge Plan Discharge Clinical Impression: Upper respiratory infection Patient Disposition: Home, Self-Care Instructions: Upper Respiratory Infection (DC) Prescriptions: No Action amoxicillin-pot clavulanate [Augmentin] 875-125 mg tablet 1 tab PO Q12H 4 Days Qty: 8 0RF benzonatate [Tessalon Perles] 100 mg capsule 100 mg PO BID PRN (Reason: cough) Qty: 20 0RF albuterol sulfate 90 mcg/actuation HFA aerosol inhaler 2 puff inhalation Q6H PRN (Reason: shortness of breath or wheezing) Qty: 8.5 0RF azithromycin 250 mg tablet 250 mg PO DAILY 5 Days Qty: 5 0RF cephalexin 500 mg capsule 500 mg PO Q6H 7 Days Qty: 28 0RF prochlorperazine maleate [Compazine] 5 mg tablet 5 mg PO BID PRN (Reason: nausea and vomiting) Qty: 14 0RF Referrals: Physician,None [Physician] -
--- NOTE | 2023-09-04 16:31 | PC.NURSE ---
pt medicated per JAN, resp contacted re breathing treatment protocol.
[2023-09-04 16:50] VITALS: PULSE 66; RESP 18; O2SAT 99
--- NOTE | 2023-09-04 17:53 | PC.NURSE ---
pt medicated per MAR.
== END 2023-09-04 17:53 | disposition home or self-care (01) ==
PROVIDERS: Emergency Provider Emergency Medicine Emergency Medical Services; PCP Internal Medicine
DX: J06.9 Acute upper respiratory infection, unspecified (principal); J02.9 Acute pharyngitis, unspecified; R50.9 Fever, unspecified; M79.10 Myalgia, unspecified site; K08.89 Other specified disorders of teeth and supporting structures; R05.9 Cough, unspecified; Z20.822 Contact with and (suspected) exposure to COVID-19; Z20.828 Contact with and (suspected) exposure to other viral communicable diseases; Z79.899 Other long term (current) drug therapy
CPT/HCPCS: 0241U; 71046; 87651; 94640; 96372; 99284; J1885

== ENCOUNTER 2025-06-10 17:08 | Emergency (ER) | payer MEDICAID, SELFPAY ==
--- NOTE | ~2025-06-10 | XR_ITS ---
CLINICAL HISTORY: cough, lung pain Two views of the chest. COMPARISON: XR chest dated 09/04/23 at 16:39 EDT FINDINGS: Normal heart and mediastinal contours. No consolidation. No pleural effusion or pneumothorax. No acute fracture. IMPRESSION: 1. No consolidation. This document has been electronically signed by: Rickey Mahoney MD on 06/10/2025 18:43:37
--- NOTE | ~2025-06-10 | CT_ITS ---
CLINICAL HISTORY: Rapidly Expanding Dental Abscess CT soft tissue neck with contrast Comparison: None provided Findings: The visualized intracranial contents are unremarkable. No prevertebral fluid. The epiglottis is within normal limits for appearance. The nasopharynx and oropharynx appear patent. [id number] mucosal thickening identified within the ethmoid air cells with mild mucosal thickening at the left maxillary sinus. Minimal mucosal thickening present at the left sphenoid sinus. The bilateral mastoid air cells appear clear. Salivary glands are unremarkable. Multifocal dental disease present with multiple dental caries. There is moderate left facial edema which extends toward the midline of the level of the maxillary and mandibular alveolar arches. There is mild extension into the left malar/left infraorbital soft tissues. No discrete fluid or abscess collection visualized. Small radiopaque densities are identified at the left andrea mandible on axial image number 205 of series 3 with associated artifact in this region. This may be related to dental amalgam. Thyroid gland is unremarkable. No consolidation at the lung apices. No acute fractures. IMPRESSION: 1. Multiple dental caries visualized with moderate left facial soft tissue swelling extending over the left maxillary and mandibular alveolar arches with mild extension into the left malar/left infraorbital soft tissues, suggesting cellulitis. This may be related to a dental infection. No organized fluid or abscess collection visualized. This document has been electronically signed by: Haseeb Cortez MD on 06/11/2025 03:12:54
--- NOTE | 2025-06-10 17:11 | ECG_ITS ---
Test Reason : CP Blood Pressure : */* mmHG Vent. Rate : 63 BPM Atrial Rate : 63 BPM P-R Int : 114 ms QRS Dur : 78 ms QT Int : 394 ms P-R-T Axes : 35 69 54 degrees QTcB Int : 403 ms Normal sinus rhythm with sinus arrhythmia Normal ECG No previous ECGs available Referred By: Generic ED Physician Electronically Signed By: STEPHANIE DING
[2025-06-10 17:43] VITALS: BP 141/79; PULSE 68; RESP 18; TEMP 36.6; O2SAT 98; BMI 26.5
--- NOTE | 2025-06-10 17:43 | ED_ITS ---
HPI - General Adult General Chief complaint: Chest Pain Stated complaint: ? abcess, chest pain, lungs hurt Time Seen by Provider: 06/11/25 00:37 Source: patient Mode of arrival: ambulatory Limitations: no limitations History of Present Illness ED Provider: Tristen MANRIQUE HPI narrative: The patient is a 40-year-old female presenting to the ED reporting for the past week she has been experiencing viral URI symptoms including a painful but nonproductive cough with shortness of breath on exertion and rhinorrhea. The patient reports today however she woke with mild left facial swelling. Patient reports she has known broken teeth with poor dentition but has a severe fear of the dentist and has not seen 1 recently. The patient denies associated fever/chills, but does report nausea without vomiting. The patient reports since arrival in the ED her facial swelling has rapidly progressed, patient provides a picture for comparison with definite rapid expansion of the left- sided facial swelling. Related Data Previous Rx's ?Medication ?Instructions ?Recorded amoxicillin 875 mg-potassium 1 tab PO Q12H 4 days #8 t abs 02/27/21 clavulanate 125 mg tablet (Augmentin) albuterol sulfate 90 mcg/actuation 2 puff inhalation Q 6H PRN 04/06/21 aerosol inhaler shortness of breath or wheez ing #8.5 grams azithromycin 250 mg tablet 250 mg PO DAILY 5 days #5 t abs 04/06/21 benzonatate 100 mg capsule 100 mg PO BID PRN cough #20 caps 04/06/21 (Tessalon Perles) cephalexin 500 mg capsule 500 mg PO Q6H uti 7 days #28 caps 09/14/21 prochlorperazine maleate 5 mg 5 mg PO BID PRN nausea a nd 11/07/21 tablet (Compazine) vomiting #14 tabs albuterol sulfate 90 mcg/actuation 2 puff inhalation Q 4-6H PRN 09/04/23 aerosol inhaler shortness of breath or wheez ing #6.7 grams amoxicillin 875 mg-potassium 1 tab PO BID 7 days #14 t abs 09/04/23 clavulanate 125 mg tablet prednisone 20 mg tablet 40 mg (2 x 20 mg) PO DAILY 5 days 09/04/23 #10 tabs acetaminophen 500 mg capsule 1,000 mg (2 x 500 mg) PO .q8 PRN 06/11/25 fever or pain #30 caps clindamycin HCl 150 mg capsule 450 mg (3 x 150 mg) PO TID 5 days 06/11/25 (Cleocin HCl) #45 caps ibuprofen 600 mg tablet 600 mg PO Q8H PRN fever or p ain 06/11/25 #30 tabs Allergies Allergy/AdvReac Type Severity Reaction Status Date / Time No Known Allergies Allergy Verified 06/10/25 17:45 Review of Systems 2 Review of Systems: Yes all other systems are reviewed and are negative PMFSH Past Medical History Medical History Patient denies significant medical history Social History Social History Smoked in Last 30 Days: Yes Advance Directives: No Advance Directives Information Provided: No Physical Exam ED Vital Signs: Vital Signs - 24 hr 06/10/25 17:43 06/10/25 23:06 06/11/25 02:00 Temperature 97.8 F 98.6 F 98.6 F Pulse Rate 68 71 60 Respiratory Rate 18 16 12 Blood Pressure 141/79 H 123/82 111/67 Pulse Oximetry 98 97 94 Oxygen Delivery Method Room Air Room Air Room Air BMI result Body Mass Index 26.5 CONSTITUTIONAL: The patient appears in obvious discomfort, but otherwise well nourished and in no acute distress. Vital signs as documented. HEAD: There is marked swelling , erythema, and tenderness of the left cheek radiating into the inferior left orbit without associated proptosis or painful EOMs, no ecchymosis or evidence of injury. Head is otherwise Atraumatic, normocephalic. EYES: EOMs intact and nonpainful, no proptosis, pupils equal, conjunctiva clear, no exudate. ENT: Nares patent, there is clear watery rhinorrhea primarily from the left nostril. Airway patent, no audible stridor, there is markedly poor dentition noted with multiple dental fractures. NECK: Trachea is midline, no cervical anterior lymphadenopathy, no obvious masses or gross abnormalities. CHEST: Symmetric movement, normal appearance. LUNGS: LS present and CTAB, no w/r/r. Non-labored work of breathing. CARDIAC: Regular Rhythm, S1/S2 appreciated, no murmurs, rubs or gallops. ABDOMEN: Abdomen soft and non-tender x4 quadrants, no palpable masses or organomegaly. : Deferred. EXTREMITIES: Normal tone, moves all extremities spontaneously without reported pain. No obvious acute injury or deformity noted. NEURO: Alert and oriented x3, CN II-XII appear grossly intact. Cerebellar Functioning grossly intact. No obvious sensory or motor deficits. Speech clear and appropriate. PSYCH: normal affect, appropriate eye contact, fluid speech, with appropriate response to questioning. No reported suicidality or homicidality. SKIN: Warm, dry, color appropriate, normal turgor. No rashes noted. Course Course Course Narrative: 06/10/25 1746 HILARIA Schreiber This is a Rapid Medical Examination (RME) performed by Mikaela Gill PA-C in triage. Full HPI, ROS, assessment and treatment plan per primary provider in the Main ED. Hx: 40 yo F here w/ cough/ lung pain x1 week and R dental infection w/ cheek swelling on waking this morning. has not seen a dentist. Not currently on antibiotics. PE/vitals: +noted swelling to left cheek, multiple dental caries and poor dentition with cracked left upper molar with periapical swelling. No anterior neck swelling Plan: Labs, inflammatory markers, lactate, blood cultures, chest x-ray, viral swabs Medications Administered Discontinued Medications Generic Name Dose Route Start Last Admin Trade Name Freq PRN Reason Stop Dose Admin Clindamycin Phosphate 600 mg in 50 mls @ 100 mls/hr 06/11/25 01:03 06/11/25 02:34 Cleocin IV 06/11/25 01:32 Infused ONCE ONE Infusion Iohexol 75 ml 06/11/25 02:03 06/11/25 02:04 Iohexol 350 Mg/Ml 100 Ml Infus..Btl IV 06/11/25 02:04 75 ml ONCE ONE Administration Ketorolac Tromethamine 15 mg 06/11/25 01:03 06/11/25 01:31 Ketorolac Tromethamine 15 Mg/Ml Vial IVPUSH 06/11/25 01:04 15 mg ONCE ONE Administration Medical Decision Making Medical Decision Making MDM Narrative: 1:11 AM 06/11/2025 (Mikaela MANRIQUE): The patient is a 40-year-old female presenting to the ED for evaluation of rapidly expanding left facial swelling in the setting of severe dental caries. Patient also recently suffered from viral URI symptoms with painful but nonproductive cough. Patient's exam shows significant progression of left-sided facial swelling compared to photographs from earlier today. There is no painful EOMs, proptosis, or other evidence of orbital cellulitis although patient's swelling is encroaching upon the inferior left orbit. The patient is afebrile and normotensive. The patient's laboratory evaluation is markedly reassuring, there is no leukocytosis, anemia, electrolyte abnormality, or IFEOMA. Patient's lactic acid is normal, viral swab is negative, troponin is negative, EKG is nonischemic, chest x-ray shows no focal consolidation. The patient is likely suffering from a simple dental abscess, however given the rapid expansion of swelling with encroachment upon the left orbit with severe pain, we will treat with IV clindamycin and obtain a facial CT to ensure no developing deep space infection. Pending no evidence of deep space infection we will discharge with p.o. clindamycin and outpatient follow up with PCP and dentist. 3:25 AM 06/11/2025 (Mikaela MANRIQUE): Patient's CT confirms multiple dental caries with overlying soft tissue swelling consistent with facial cellulitis, there is thankfully no evidence of a abscess or other deep space infection, patient will be discharged with clindamycin p.o., anti-inflammatories, and outpatient follow up with dentist. Admission/Observation Consideration of admission/observation: Escalation of care including admission/observation considered Lab Data MDM Lab Attestation statement: I reviewed the patient's lab results. 06/10/25 18:07 06/10/25 18:07 Labs: Lab Results 06/10/25 06/10/25 Range/Units 18:07 23:56 WBC 8.2 (4.8-10.8) X10*3/uL RBC 4.21 (4.20-5.50) X10*6/uL Hgb 13.9 D (12.0-16.0) g/dl Hct 40.0 D (37.0-47.0) % MCV 95.0 (80.0-98.0) fL MCH 33.0 (27.0-33.0) pg MCHC 34.8 (31.0-35.0) g/dl RDW 12.8 (11.0-16.0) % Plt Count 184 D (160-400) X10*3/uL MPV 10.4 (9.4-12.3) fL Immature Gran % (Auto) 0.2 (0.0-0.4) % Neut % (Auto) 68.6 (45-73) % Lymph % (Auto) 22.4 (20-40) % Maries % (Auto) 7.7 (2-11) % Eos % (Auto) 0.9 (0-4) % Baso % (Auto) 0.2 (0-2) % Lymph # (Auto) 1.8 (1.2-4.9) X10*3/uL Maries # (Auto) 0.6 (0.1-1.2) X10*3/uL Eos # (Auto) 0.1 (0.0-0.4) X10*3/uL Baso # (Auto) 0.0 (0.0-0.2) X10*3/uL Abs Immat Gran (auto) 0.02 (0.00-0.03) X10*3/uL Absolute Neuts (auto) 5.6 (2.0-8.3) x10*3/uL Absolute Nucleated RBC 0.000 (0.0-0.012) X10*3/uL Nucleated RBC % (auto) 0.0 (0.0-0.2) /100WBC Sodium 137 (135-145) mmol/L Potassium 3.8 (3.3-5.1) mmol/L Chloride 108 (96-108) mmol/L Carbon Dioxide 22 (22-29) mmol/L Anion Gap 11 L (12-20) BUN 9 (9-16) mg/dL Creatinine 0.64 (0.5-1.4) mg/dL Estim Creat Clear Calc 100.0 Estimated GFR > 60 Random Glucose 104 (60-115) mg/dL Lactic Acid 0.7 (0.5-2.0) mmol/L Calcium 8.5 (8.4-10.2) mg/dL Magnesium 2.0 (1.6-2.6) mg/dL Total Bilirubin 0.4 (0.0-1.0) mg/dL AST 19 (5-31) U/L ALT 26 (0-31) U/L Alkaline Phosphatase 44 (39-117) U/L Troponin I High Sens < 2.7 (<3.5-17.0) ng/L C-Reactive Protein 0.14 (< or = 0.50) mg/dL Total Protein 6.8 (6.5-8.0) g/dL Albumin 4.4 (3.5-5.0) g/dL Beta HCG, Quant < 2 mIU/mL Influenza Type A (PCR) NEGATIVE (Negative) Influenza Type B (PCR) NEGATIVE (Negative) RSV RNA Qual (PCR) NEGATIVE (Negative) SARS-CoV-2 RNA (RT-PCR) NEGATIVE (Negative) Independent Interpretation I performed an independent interpretation of an: EKG (EKG shows sinus rhythm with a rate of 63, no evidence of acute ischemia, no ST elevation, no ectopy. QTC 403. No old for comparison.) Radiology Impression Discussion of test interpretation with radiology: I have reviewed the radiologist's reading. Radiologist Impression: CLINICAL HISTORY: cough, lung pain Two views of the chest. COMPARISON: XR chest dated 09/04/23 at 16:39 EDT FINDINGS: Normal heart and mediastinal contours. No consolidation. No pleural effusion or pneumothorax. No acute fracture. IMPRESSION: 1. No consolidation. This document has been electronically signed by: Rickey Mahoney MD on 06/10/2025 18:43:37 Report Number: [id number]: Total DLP = 452.00 mGy-cm CLINICAL HISTORY: Rapidly Expanding Dental Abscess CT soft tissue neck with contrast Comparison: None provided Findings: The visualized intracranial contents are unremarkable. No prevertebral fluid. The epiglottis is within normal limits for appearance. The nasopharynx and oropharynx appear patent. [id number] mucosal thickening identified within the ethmoid air cells with mild mucosal thickening at the left maxillary sinus. Minimal mucosal thickening present at the left sphenoid sinus. The bilateral mastoid air cells appear clear. Salivary glands are unremarkable. Multifocal dental disease present with multiple dental caries. There is moderate left facial edema which extends toward the midline of the level of the maxillary and mandibular alveolar arches. There is mild extension into the left malar/left infraorbital soft tissues. No discrete fluid or abscess collection visualized. Small radiopaque densities are identified at the left andrea mandible on axial image number 205 of series 3 with associated artifact in this region. This may be related to dental amalgam. Thyroid gland is unremarkable. No consolidation at the lung apices. No acute fractures. IMPRESSION: 1. Multiple dental caries visualized with moderate left facial soft tissue swelling extending over the left maxillary and mandibular alveolar arches with mild extension into the left malar/left infraorbital soft tissues, suggesting cellulitis. This may be related to a dental infection. No organized fluid or abscess collection visualized. This document has been electronically signed by: Harris Cortez MD on 06/11/2025 03:12:54 Discharge Plan Discharge Clinical Impression: Infected dental caries, Cellulitis of face Patient Disposition: Home, Self-Care Instructions: Dental Abscess (ED), Cellulitis (ED) Additional Instructions: Thank you for choosing [facility] Emergency Department for your care today. Thankfully your CT today showed no evidence of a developing deep space infection or abscess. Your CT does show evidence of infected teeth and facial cellulitis as a result of that infection. At this time there is no evidence of an acute process requiring surgical intervention, admission to the hospital or continued ED observation, and it is safe to discharge you home. Please take clindamycin as prescribed until it is finished. It is absolutely essential that you follow up with a dentist for definitive care of your dental infections. You may take alternating (staggered) doses of ibuprofen 600mg and Tylenol 1000mg every 4 hours as needed for any additional pain. Please apply ice for 20 minutes every hour. Please stay well hydrated and get plenty of rest. Please also follow up with your primary care physician for re-evaluation, additional management of your symptoms, and continued preventative care. If you do not have a primary care physician, please call the [facility] at [phone] to establish a new primary care physician. While waiting to establish your new primary care physician, you can call our [facility] at [phone] for non-emergency needs. Please return to the emergency department if you develop a severe or sudden change in your symptoms, a fever over 100.4 that does not improve with Tylenol or Ibuprofen, recurrent vomiting, or any other new or worsening symptoms or concerns. Prescriptions: New ibuprofen 600 mg tablet 600 mg PO Q8H PRN (Reason: fever or pain) Qty: 30 0RF acetaminophen 500 mg capsule 1,000 mg PO .q8 PRN (Reason: fever or pain) Qty: 30 0RF clindamycin HCl [Cleocin HCl] 150 mg capsule 450 mg PO TID 5 Days Qty: 45 0RF No Action amoxicillin-pot clavulanate [Augmentin] 875-125 mg tablet 1 tab PO Q12H 4 Days Qty: 8 0RF benzonatate [Tessalon Perles] 100 mg capsule 100 mg PO BID PRN (Reason: cough) Qty: 20 0RF albuterol sulfate 90 mcg/actuation HFA aerosol inhaler 2 puff inhalation Q6H PRN (Reason: shortness of breath or wheezing) Qty: 8.5 0RF azithromycin 250 mg tablet 250 mg PO DAILY 5 Days Qty: 5 0RF cephalexin 500 mg capsule 500 mg PO Q6H 7 Days Qty: 28 0RF prochlorperazine maleate [Compazine] 5 mg tablet 5 mg PO BID PRN (Reason: nausea and vomiting) Qty: 14 0RF prednisone 20 mg tablet 40 mg PO DAILY 5 Days Qty: 10 0RF albuterol sulfate 90 mcg/actuation HFA aerosol inhaler 2 puff inhalation Q4-6H PRN (Reason: shortness of breath or wheezing) Qty: 6.7 0RF amoxicillin-pot clavulanate 875-125 mg tablet 1 tab PO BID 7 Days Qty: 14 0RF Referrals: HARRIS OJEDA [Primary Care Provider, Internal Medicine] Clinical Impression: Cellulitis of face; Infected dental caries Print Language: Senegalese
[2025-06-10 18:12] LABS: MANUAL DIFF FLAG NO
[2025-06-10 18:14] LABS: Hematocrit 40.0 % (37.0-47.0); Hemoglobin 13.9 g/dl (12.0-16.0); Imm Gran Abs Auto 0.02 X10*3/uL (0.00-0.03); Imm Gran Pct Auto 0.2 % (0.0-0.4); Lymphocytes Absolute Auto 1.8 X10*3/uL (1.2-4.9); Mean Corpuscular HGB Conc 34.8 g/dl (31.0-35.0); Mean Corpuscular Hemoglobin 33.0 pg (27.0-33.0); Mean Corpuscular Volume 95.0 fL (80.0-98.0); NRBC Abs Auto 0.000 X10*3/uL (0.0-0.012); NRBC Pct Auto 0.0 /100WBC (0.0-0.2); Platelet Count 184 X10*3/uL (160-400); Red Blood Count 4.21 X10*6/uL (4.20-5.50); White Blood Count 8.2 X10*3/uL (4.8-10.8)
[2025-06-10 18:43] LABS: Alanine Aminotransferase 26 U/L (0-31); Albumin Level 4.4 g/dL (3.5-5.0); Alkaline Phosphatase 44 U/L (39-117); Anion Gap 11 (12-20); Aspartate Amino Transferase 19 U/L (5-31); Blood Urea Nitrogen 9 mg/dL (9-16); Calcium 8.5 mg/dL (8.4-10.2); Carbon Dioxide 22 mmol/L (22-29); Chloride 108 mmol/L (96-108); Creatinine Clr Calc Pharmacy 100.0; Estimated Glomerular Filt Rate > 60; Magnesium 2.0 mg/dL (1.6-2.6); Potassium 3.8 mmol/L (3.3-5.1); Sodium 137 mmol/L (135-145); Total Protein 6.8 g/dL (6.5-8.0)
[2025-06-10 19:38] LABS: Resp Syncy Virus RNA Qual PCR NEGATIVE (Negative); SARS COV2 PCR INHOUSE NEGATIVE (Negative)
[2025-06-10 23:06] VITALS: BP 123/82; PULSE 71; RESP 16; TEMP 37; O2SAT 97
[2025-06-11 00:26] LABS: Troponin-I High Sensitivity < 2.7 ng/L (<3.5-17.0)
[2025-06-11 02:00] VITALS: BP 111/67; PULSE 60; RESP 12; TEMP 37; O2SAT 94
[2025-06-11] MEDS: iohexoL 350 MG/ML 100 ML INFUS..BTL 75 ML IV (02:04)
[2025-06-11 03:58] VITALS: BP 116/76; PULSE 87; RESP 16; O2SAT 100
[2025-06-11 04:10] VITALS: BP 116/76; PULSE 87; RESP 16; TEMP 37; O2SAT 100
== END 2025-06-11 04:13 | disposition home or self-care (01) ==
PROVIDERS: Physician Assistant Medical; Emergency Provider Emergency Medicine; PCP Internal Medicine
DX: K04.7 Periapical abscess without sinus (principal); L03.211 Cellulitis of face; I49.8 Other specified cardiac arrhythmias; R07.89 Other chest pain; R05.9 Cough, unspecified; R06.02 Shortness of breath; J34.89 Other specified disorders of nose and nasal sinuses; Z03.818 Encounter for observation for suspected exposure to other biological agents ruled out; Z79.899 Other long term (current) drug therapy
CPT/HCPCS: 36415; 70491; 71046; 80053; 83605; 83735; 84484; 84702; 85025; 86140; 87040; 87637; 93005; 96365; 96375; 99284; 99285; J0736; J1885; Q9967

== ENCOUNTER → 2025-06-10 17:11 | Outpatient (BNV) | payer MEDICAID, SELFPAY | PROVIDERS: Emergency Provider Emergency Medicine; PCP Internal Medicine; Visit Provider Internal Medicine | DX: R07.9 Chest pain, unspecified (principal) | CPT/HCPCS: 93010 ==

== ENCOUNTER → 2025-06-10 17:45 | Outpatient (BNV) | payer OTHER, SELFPAY | PROVIDERS: PCP Internal Medicine; Visit Provider Radiology Diagnostic Radiology | DX: R05.9 Cough, unspecified (principal) | CPT/HCPCS: 71046 ==

== ENCOUNTER → 2025-06-11 01:15 | Outpatient (BNV) | payer OTHER, SELFPAY | PROVIDERS: Emergency Provider Emergency Medicine; PCP Internal Medicine; Visit Provider Radiology Diagnostic Radiology | DX: K02.9 Dental caries, unspecified (principal); R22.1 Localized swelling, mass and lump, neck | CPT/HCPCS: 70491 ==